=== PATIENT | male | born 1985 | race African-American/Black ===

== ENCOUNTER 2018-11-01 14:29 | Emergency (ER) | payer OTHER ==
[2018-11-01 14:38] VITALS: BP 139/87; PULSE 93; RESP 18; TEMP 97.5
[2018-11-01] MEDS ORDERED: DIPH,PERTUS(ACELL)TETVAC-LF 0.5 ML VIAL IM ONE (14:48)
[2018-11-01] MEDS ORDERED: LIDOCAINE 1% INJ 10MG/ML (20 ML MDV) SQ ONE (14:49)
--- NOTE | 2018-11-01 15:34 | XR ---
Right hand HISTORY: Laceration 2 views of the right hand Bone mineralization, joint spaces and alignment are maintained. No fracture or dislocation. Soft tiss ues remarkable for possible punctate density over the region of the proximal metacarpals seen on the lateral exam. Impression: Question foreign body as described
--- NOTE | 2018-11-01 16:22 | ED ---
General Adult HPI - General Chief complaint: Wound/Laceration Stated complaint: Arm lac Time Seen by Provider: 11/01/18 14:39 Source: patient Mode of arrival: ambulatory Limitations: no limitations - History of Present Illness Initial comments: Patient is a 33-year-old male presenting to emergency Department with a chief complaint of cutting his hand on glass. She reports attempting to knock on a window causing it to break into multiple pieces. Patient denies any foreign bodies at the laceration sites. Patient reports a laceration on the lateral a spect of his right hand, distal forearm and lateral palmar aspect. Patient is unaware of his tetanus status. Patient reports minimal pain at the site of injuries. Patient denies taking any [id number]-hye-[id number] medications to alleviate his symptoms. - Related Data Allergies Allergy/AdvReac Type Severity Reaction Status Date / Time No Known Allergies Allergy Verified 11/01/18 14:37 Review of Systems ROS Statement: Those systems with pertinent positive or pertinent negative responses have been documented in the HPI. ROS Other: All systems not noted in ROS Statement are negative. Past Medical History Past Medical History: No Reported History History of Any Multi-Drug Resistant Organisms: None Reported Past Surgical History: No Surgical Hx Reported Past Psychological History: No Psychological Hx Reported Smoking Status: Current every day smoker Past Alcohol Use History: Occasional Past Drug Use History: Marijuana General Exam Limitations: no limitations General appearance: alert, in no apparent distress, obese Eye exam: Present: normal appearance, PERRL, EOMI Pupils: Present: normal accommodation ENT exam: Present: normal exam, mucous membranes moist, normal external ear exam Neck exam: Present: normal inspection, full ROM Respiratory exam: Present: normal lung sounds bilaterally Cardiovascular Exam: Present: regular rate, normal rhythm, normal heart sounds Extremities exam: Present: full ROM (Full range of motion her right hand and wr ist), normal capillary refill, other (+2 radial and ulnar pulses bilaterally). Absent: normal inspection (Laceration along the palmar aspect of her right hand, lateral aspect of her right hand and distal forearm. All lacerations are approximately 1 cm.) Back exam: Present: normal inspection, full ROM Neurological exam: Present: alert, oriented X3 Psychiatric exam: Present: normal affect, normal mood Skin exam: Present: warm, intact, normal color Course Vital Signs 11/01/18 14:32 Temperature 97.5 F L Pulse Rate 93 Respiratory 18 Rate Blood Pressure 139/87 O2 Sat by Pulse 100 Oximetry Procedures - Laceration Laceration #1 Consent Obtained: verbal consent Indication: laceration Site: hand (Right) Size (cm): 1 Description: linear Depth: simple, single layer Sedation/Analgesia: none Anesthetic Used: lidocaine 1% Anesthesia Technique: local infiltration Amount (mls): 5 Pre-repair: irrigated extensively Type of Sutures: nylon Size of Sutures: 4-0 Number of Sutures: 2 Technique: simple, interrupted Patient Tolerated Procedure: well Laceration #2 Consent Obtained: verbal consent Indication: laceration Site: hand (Right) Size (cm): 1 Description: linear Depth: simple, single layer Sedation/Analgesia: none Anesthetic Used: lidocaine 1% Anesthesia Technique: local infiltration Amount (mls): 5 Pre-repair: irrigated extensively Type of Sutures: nylon Size of Sutures: 4-0 Number of Sutures: 2 Technique: simple, interrupted Patient Tolerated Procedure: well Laceration #3 Consent Obtained: verbal consent Indication: laceration Site: upper extremity (Distal forearm right) Size (cm): 1 Description: linear Depth: simple, single layer Sedation/Analgesia: none Anesthetic Used: lidocaine 1% Anesthesia Technique: local infiltration Amount (mls): 5 Pre-repair: irrigated extensively Type of Sutures: nylon Size of Sutures: 4-0 Number of Sutures: 2 Technique: simple, interrupted Patient Tolerated Procedure: well Medical Decision Making - Medical Decision Making Patient is a 33-year-old male presents emergency Department with with a chief complaint of cut on his hand on glass. X-ray of the right arm is showing a small foreign body on the lateral view however that does not correlate clinically. There is no laceration in that location. Altered laceration sites were repaired using 2 sutures. Patient was given tetanus prophylaxis. Patient advised to return to emergency department in 10 days or sooner if symptoms worsen. Patient advised to follow proper wound care structures. Strict return parameters were thoroughly discussed with patient was understanding and agreeable. Case discussed with physician. Disposition Clinical Impression: Laceration Disposition: HOME SELF-CARE Condition: Stable Instructions (If sedation given, give patient instructions): Care For Your S titches (DC), Laceration (DC) Additional Instructions: Please return to emergency department in 10-14 days for suture removal or sooner if symptoms worsen. Please follow proper wound care INSTRUCTIONS. Is patient prescribed a controlled substance at d/c from ED?: No Referrals: Kelly Enrique MD [Primary Care Provider] - 1-2 days Time of Disposition: 16:22
[2018-11-03] MEDS ORDERED: SODIUM CHLORIDE 0.9% IRRIG 1,000 ML BTL IRRIGATION ONE (19:18)
== END 2018-11-01 16:33 | disposition home or self-care (01) ==
LOC: EC 14:29
DX: S61.411A Laceration without foreign body of right hand, initial encounter (principal); S51.811A Laceration without foreign body of right forearm, initial encounter; F17.200 Nicotine dependence, unspecified, uncomplicated; Z23 Encounter for immunization; W25.XXXA Contact with sharp glass, initial encounter; Y93.89 Activity, other specified
CPT/HCPCS: 73120; 90715; 99283; 12002; 90471; J2001

== ENCOUNTER 2019-09-27 19:15 | Emergency (ER) | payer OTHER ==
[2019-09-27 19:36] VITALS: BP 155/103; PULSE 102; RESP 20; TEMP 98.2
[2019-09-27] MEDS ORDERED: CYCLOBENZAPRINE 10MG STARTER 3 TAB BTL PO STA (19:42)
[2019-09-27] MEDS ORDERED: KETOROLAC 30 MG/ML 1 ML VIAL IM STA (19:42)
--- NOTE | 2019-09-27 19:45 | ED ---
Upper Extremity HPI - General Chief Complaint: Extremity Injury, Upper Stated Complaint: L Shoulder Pain Time Seen by Provider: 09/27/19 19:37 Source: patient, family Mode of arrival: ambulatory Limitations: no limitations - History of Present Illness Initial Comments: 34-year-old male patient presents to the emergency department today for evaluation of left shoulder pain. Patient states 3 weeks ago he was attempting to push a car when he felt a popping sensation in the left shoulder. Patient states he has been having pain to the shoulder since. Seems like his pain is worsening. He denies any pain radiation from his neck or down his arm. Denies numbness or tingling to the extremity. States the pain worsens significantly when he attempts to lift anything with the left arm. Denies any previous injuries to the shoulder. States he did take ibuprofen for the first couple of days but hasn't taken anything since. Denies any difficulty with range of motion. Patient denies any headache, neck pain, back pain, chest pain, shortness of breath, dizziness, weakness, abdominal pain, nausea, vomiting, or difficulties with bowel movements or urination. - Related Data Previous Rx's Medication Instructions Recorded Cyclobenzaprine [Flexeril] 10 mg PO TID #15 tab 09/27/19 Naproxen [EC-Naprosyn] 500 mg PO BID PRN #30 tablet. 09/27/19 Allergies Allergy/AdvReac Type Severity Reaction Status Date / Time No Known Allergies Allergy Verified 11/01/18 14:37 Review of Systems ROS Statement: Those systems with pertinent positive or pertinent negative responses have been documented in the HPI. ROS Other: All systems not noted in ROS Statement are negative. Past Medical History Past Medical History: Hypertension History of Any Multi-Drug Resistant Organisms: None Reported Past Surgical History: No Surgical Hx Reported Past Psychological History: No Psychological Hx Reported Smoking Status: Current every day smoker Past Alcohol Use History: Daily Past Drug Use History: Marijuana General Exam Limitations: no limitations General appearance: alert, in no apparent distress, other (This is a well- developed, well-nourished adult male patient in no acute distress. Vital signs upon presentation are temperature 98.2F, pulse 102, respirations 20, blood pressure 155/103, pulse ox 97% on room air.) Neck exam: Present: normal inspection, full ROM. Absent: tenderness, meningismus, lymphadenopathy Respiratory exam: Present: normal lung sounds bilaterally. Absent: respiratory distress, wheezes, rales, rhonchi, stridor Cardiovascular Exam: Present: regular rate, normal rhythm, normal heart sounds. Absent: systolic murmur, diastolic murmur, rubs, gallop, clicks Extremities exam: Present: normal inspection, full ROM, normal capillary refill, other (Skin to the left arm is warm and dry. Cap refills less than 3 seconds. Radial pulses 2+ and equal bilaterally. Patient exhibits full active range of motion of the left shoulder). Absent: tenderness, pedal edema, joint swelling, calf tenderness Neurological exam: Present: alert, oriented X3, CN II-XII intact Psychiatric exam: Present: normal affect, normal mood Skin exam: Present: warm, dry, intact, normal color. Absent: rash Course Vital Signs 09/27/19 19:32 Temperature 98.2 F Pulse Rate 102 H Respiratory 20 Rate Blood Pressure 155/103 O2 Sat by Pulse 97 Oximetry Medical Decision Making - Medical Decision Making 34-year-old male patient presents to the emergency department today for evaluation of left shoulder pain. Patient states the pain worsens when he attempts to lift something. He has full range of motion. He is having anterior shoulder tenderness. Neurovascular status is intact. Injury occurred approximately 3 weeks ago. We will do a trial of anti-inflammatories and muscle relaxers. He is instructed to follow-up with his primary care physician for recheck in 1-2 days. He is instructed to follow-up with orthopedics if his symptoms are not improved. Return parameters discussed in detail. He verbalizes understanding and agrees with this plan. - Radiology Data Radiology results: report reviewed, image reviewed X-ray of the left shoulder is obtained. Report is reviewed in its entirety. Impression by Dr. Fan shows negative left shoulder exam Disposition Clinical Impression: Left shoulder strain Disposition: HOME SELF-CARE Condition: Good Instructions (If sedation given, give patient instructions): Shoulder Pain (ED) Additional Instructions: Take medications as directed. Follow up with orthpedic specialist if symptoms do not improve with medication. Follow up with your primary care physician for recheck in 1-2 days. Return to the emergency department for any new, worsening, or concerning symptoms. Prescriptions: Naproxen [EC-Naprosyn] 500 mg PO BID PRN #30 tablet.dr BARRERA Reason: Pain Cyclobenzaprine [Flexeril] 10 mg PO TID #15 tab Is patient prescribed a controlled substance at d/c from ED?: No Referrals: Kelly Enrique MD [Primary Care Provider] - 1-2 days Denton Patel MD [Medical Doctor] - 1-2 days Time of Disposition: 20:16
--- NOTE | 2019-09-27 20:05 | XR ---
EXAMINATION TYPE: XR shoulder complete LT DATE OF EXAM: 09/27/2019 COMPARISON: None HISTORY: Shoulder pain TECHNIQUE: 3 views FINDINGS: There is no sign of fracture nor dislocation. Joint spaces are normal. There are no patholo gic calcifications. IMPRESSION: Negative left shoulder exam.
== END 2019-09-27 20:24 | disposition home or self-care (01) ==
LOC: EC 19:15
DX: S46.912A Strain of unspecified muscle, fascia and tendon at shoulder and upper arm level, left arm, initial encounter (principal); F17.200 Nicotine dependence, unspecified, uncomplicated; X50.9XXA Other and unspecified overexertion or strenuous movements or postures, initial encounter
CPT/HCPCS: 99283; 73030; 96372; J1885

== ENCOUNTER → 2020-02-25 | Outpatient (CLI) | payer OTHER ==
--- NOTE | 2020-02-25 16:38 | XR ---
Cervical spine HISTORY: Neck pain 5 views of the cervical spine Cervical vertebral bodies show preserved height, alignment, and bone mineralization. Disc spaces and prevertebral soft tissues are normal. No fracture or subluxation. No significant foraminal encroachme nt. IMPRESSION: No acute abnormality.
== END | disposition home or self-care (01) ==
LOC: RADXRMAIN 13:46
PROVIDERS: ATTEND Internal Medicine
DX: M54.2 Cervicalgia (principal)
CPT/HCPCS: 72050

== ENCOUNTER 2020-10-03 13:52 | Inpatient (IN) | payer MEDICAID, OTHER ==
--- NOTE | 2020-10-03 14:39 | ED ---
General Adult HPI - General Source: patient, RN notes reviewed, old records reviewed Mode of arrival: ambulatory Limitations: no limitations <George Roberson - Last Filed: 10/03/20 14:38> <Angeles Parish - Last Filed: 10/03/20 17:00> - General Chief complaint: Psychiatric Symptoms Stated complaint: Stressed Time Seen by Provider: 10/03/20 14:24 - History of Present Illness Initial comments: 35-year-old male presenting for mental health evaluation. Patient states he's been more depressed than usual. He is requesting to be able to talk with a counselor or psychiatric nurse. He denies suicide attempt. Denies any self- harm. He states he's had some issues similar to this in the past where his had increasing depression. No physical complaints. (George Roberson) - Related Data Home Medications Medication Instructions Recorded Confirmed Ascorbic Acid [Vitamin C] 1,000 mg PO DAILY 10/03/20 10/03/20 Losartan Potassium 50 mg PO DAILY 10/03/20 10/03/20 Phentermine HCl [Adipex-P] 37.5 mg PO DAILY 10/03/20 10/03/20 Allergies Allergy/AdvReac Type Severity Reaction Status Date / Time No Known Allergies Allergy Verified 10/03/20 15:46 Review of Systems ROS Other: All systems not noted in ROS Statement are negative. <George Roberson - Last Filed: 10/03/20 14:38> ROS Other: All systems not noted in ROS Statement are negative. <Angeles Parish - Last Filed: 10/03/20 17:00> ROS Statement: Those systems with pertinent positive or pertinent negative responses have been documented in the HPI. Past Medical History Past Medical History: Hypertension History of Any Multi-Drug Resistant Organisms: None Reported Past Surgical History: No Surgical Hx Reported Past Psychological History: No Psychological Hx Reported Smoking Status: Current every day smoker Past Alcohol Use History: Daily Past Drug Use History: Marijuana <George Roberson - Last Filed: 10/03/20 14:38> General Exam Limitations: no limitations General appearance: alert, in no apparent distress Head exam: Present: atraumatic, normocephalic Eye exam: Present: normal appearance, PERRL ENT exam: Present: normal exam Neck exam: Present: normal inspection. Absent: tenderness, meningismus Respiratory exam: Present: normal lung sounds bilaterally. Absent: respiratory distress, wheezes Cardiovascular Exam: Present: regular rate, normal rhythm GI/Abdominal exam: Present: soft. Absent: distended, tenderness, guarding Extremities exam: Present: normal inspection, normal capillary refill Neurological exam: Present: alert, oriented X3 Psychiatric exam: Present: depressed, flat affect Skin exam: Present: warm, dry, intact. Absent: cyanosis, diaphoretic <George Roberson - Last Filed: 10/03/20 14:38> Course <George Roberson - Last Filed: 10/03/20 14:38> Vital Signs 10/03/20 14:16 Temperature 98.8 F Pulse Rate 89 Respiratory 18 Rate Blood Pressure 154/98 O2 Sat by Pulse 100 Oximetry - Reevaluation(s) Reevaluation #1: 10/03/20 1500 Patient's care is signed out at shift change to Dr. Parish awaiting EPS evaluation. (George Roberson) Medical Decision Making <Angeles Parish - Last Filed: 10/03/20 17:00> - Medical Decision Making Patient care was signed out to me by Dr Roberson, patient with flat affect, depressed awaiting evaluation by EPS EPS evaluated the patient who disclosed to them a psychiatric history, previous IM injections, non-compliance with previous medication regimen and delusional thoughts. Patient signed in to psychiatric facility voluntarily (Angeles Parish) - Lab Data Lab Results 10/03/20 Range/Units 14:49 Urine Opiates Screen Not Detected (NotDetected) Ur Oxycodone Screen Not Detected (NotDetected) Urine Methadone Screen Not Detected (NotDetected) Ur Propoxyphene Screen Not Detected (NotDetected) Ur Barbiturates Screen Not Detected (NotDetected) U Tricyclic Antidepress Not Detected (NotDetected) Ur Phencyclidine Scrn Not Detected (NotDetected) Ur Amphetamines Screen Detected H (NotDetected) U Methamphetamines Scrn Not Detected (NotDetected) U Benzodiazepines Scrn Not Detected (NotDetected) Urine Cocaine Screen Not Detected (NotDetected) U Marijuana (THC) Screen Detected H (NotDetected) Disposition <George Roberson N - Last Filed: 10/03/20 14:38> <Angeles Parish - Last Filed: 10/03/20 17:00> Clinical Impression: Psychosis Disposition: TRANSFER TO PSYCH HOSP/UNIT Referrals: Kelly Enrique MD [Primary Care Provider] - 1-2 days
[2020-10-03 15:52] LABS: Amphetamine Screen,Urine Detected (NotDetected); Barbiturate Screen,Urine Not Detected (NotDetected); Benzodiazepines Screen,Urine Not Detected (NotDetected); Cocaine Screen,Urine Not Detected (NotDetected); Methadone Screen, Urine Not Detected (NotDetected); Opiate Screen,Urine Not Detected (NotDetected); Oxycodone Screen, Urine Not Detected (NotDetected); Phencyclidine Screen,Urine Not Detected (NotDetected); Tricyclic Antidepressant,Urine Not Detected (NotDetected); Urn Cannabinoid Scrn Detected (NotDetected)
[2020-10-03] MEDS ORDERED: MAGNESIUM HYDROXIDE 2,400 MG/10 ML CUP PO PRN (22:20)
[2020-10-03] MEDS ORDERED: LORazepam 1 MG TAB PO PRN (22:20)
[2020-10-03] MEDS ORDERED: ACETAMINOPHEN TAB 325 MG TAB PO PRN (22:20)
[2020-10-03] MEDS ORDERED: MAG HYDROX/AL HYDROX/SIMETH 30 ML CUP PO PRN (22:20)
[2020-10-03] MEDS ORDERED: HALOPERIDOL LACTATE 5 MG/ML 1 ML VIAL IM PRN (22:21)
[2020-10-03] MEDS ORDERED: LORazepam 2 MG/ML INJ IM PRN (22:21)
[2020-10-03 23:09] LABS: Amorphous Sediment,Urine Rare /hpf; Appearance,Urine Cloudy (Clear); Bilirubin,Urine Negative (Negative); Blood,Urine Negative (Negative); Color,Urine Yellow; Glucose,Urine (UA) Negative (Negative); Ketones,Urine Negative (Negative); Leukocyte Esterase,Urine Small (Negative); Mucus,Urine Moderate /hpf; Nitrite,Urine Negative (Negative); PH, Urine 5.5 (5.0-8.0); Protein,Urine 1+ (Negative); Specific Gravity,Urine 1.036 (1.001-1.035); Squamous Epithelial Cell,Urine 1 /hpf (0-4); Urobilinogen,Urine <2.0 mg/dL (<2.0); WBC,Urine 26 /hpf (0-5)
[2020-10-04] MEDS: LOSARTAN 50 MG TAB PO SCH (09:00)
[2020-10-04] MEDS: ASCORBIC ACID 500 MG TAB PO SCH (09:00)
[2020-10-04 10:16] LABS: Basophils # (A) 0.1 k/uL (0-0.2); Basophils % (A) 1 %; Eosinophils # (A) 0.2 k/uL (0-0.7); Eosinophils % (A) 3 %; HCT 44.3 % (39.0-53.0); Lymphocytes # (A) 2.8 k/uL (1.0-4.8); Lymphocytes % (A) 47 %; MCH 27.3 pg (25.0-35.0); MCHC 33.9 g/dL (31.0-37.0); MCV 80.7 fL (80.0-100.0); Mean Platelet Volume 6.7; Monocytes # (A) 0.4 k/uL (0-1.0); Monocytes % (A) 7 %; Neutrophils # (A) 2.5 k/uL (1.3-7.7); Neutrophils % (A) 40 %; Platelet Count 327 k/uL (150-450); RDW 14.2 % (11.5-15.5); WBC 6.1 k/uL (3.8-10.6)
--- NOTE | 2020-10-04 10:23 | P.CONS ---
History of Present Illness - Reason for Consult Consult date: 10/04/20 Medical Management Requesting physician: Henrry Savage - Chief Complaint Psychosis - History of Present Illness This is a 35-year-old male patient who presented to the ER with concerns of more depression than usual. Patient was admitted voluntarily to the psychiatric unit for further management. Patient denies any thoughts of suicide or self-harm. Patient reports he has a history of depression but he became increasingly worse due to stressors at home. patient denies any recent illness. Patient does have a past medical history of essential hypertension. Patient is current every day smoker alcohol and marijuana use. At this time patient denies any chest pain or shortness of breath. Patient denies nausea vomiting or diarrhea. Patient denies any urinary burning or frequency. Review of Systems please refer to HPI otherwise unremarkable Past Medical History Past Medical History: Hypertension History of Any Multi-Drug Resistant Organisms: None Reported Past Surgical History: No Surgical Hx Reported Smoking Status: Current every day smoker Medications and Allergies Home Medications Medication Instructions Recorded Confirmed Type Ascorbic Acid [Vitamin C] 1,000 mg PO DAILY 10/03/20 10/03/20 History Losartan Potassium 50 mg PO DAILY 10/03/20 10/03/20 History Phentermine HCl [Adipex-P] 37.5 mg PO DAILY 10/03/20 10/03/20 History Allergies Allergy/AdvReac Type Severity Reaction Status Date / Time No Known Allergies Allergy Verified 10/03/20 15:46 Physical Exam Vitals: Vital Signs Temp Pulse Pulse Resp BP BP BP 10/04/20 08:59 97.9 F 94 20 160/93 10/04/20 01:15 98.3 F 87 18 148/83 10/03/20 22:19 98.0 F 91 16 134/89 10/03/20 14:16 98.8 F 89 18 154/98 Pulse Ox 10/04/20 08:59 99 10/04/20 01:15 98 10/03/20 22:19 95 10/03/20 14:16 100 Intake and Output 10/03/20 10/04/20 10/04/20 22:59 06:59 14:59 Other: Weight 146.142 kg Head normocephalic Neck supple Lungs clear to auscultation bilaterally no wheezing or crackles Heart regular rate and rhythm S1-S2, no rub or gallop Abdomen is soft nontender nondistended positive bowel sounds no hepatosplenomegaly Extremities no edema Neuro alert and orientated to 3 Results CBC & Chem 7: 10/04/20 09:37 Labs: Abnormal Lab Results - Last 24 Hours (Table) 10/03/20 10/03/20 Range/Units 14:49 14:49 Ur Specific [place] 1.036 H (1.001-1.035) Urine Protein 1+ H (Negative) Ur Leukocyte Esterase Small H (Negative) Urine WBC 26 H (0-5) /hpf Amorphous Sediment Rare H (None) /hpf Urine Mucus Moderate H (None) /hpf Ur Amphetamines Screen Detected H (NotDetected) U Marijuana (THC) Screen Detected H (NotDetected) Assessment and Plan Assessment: 1. Increased depression with psychosis. Patient has been admitted to the mental health unit for further treatment 2. Essential hypertension 3. Current every day smoker 4. Marijuana use Time with Patient: Greater than 30 (Greater than 60% of the total time spent in counseling and coordination of care)
[2020-10-04 10:29] LABS: ALT 32 U/L (4-49); AST 35 U/L (17-59); African American GFR (CKD) >90 (>60 ml/min/1.73 sqM); Albumin 4.8 g/dL (3.5-5.0); Alkaline Phosphatase 64 U/L (38-126); Anion Gap 10 mmol/L; Blood Urea Nitrogen 14 mg/dL (9-20); Calcium 10.3 mg/dL (8.4-10.2); Carbon Dioxide 31 mmol/L (22-30); Chloride 99 mmol/L (98-107); Glucose 93 mg/dL (74-99); Non-African American GFR(CKD) 79 (>60 ml/min/1.73 sqM); Potassium 4.3 mmol/L (3.5-5.1); Sodium 140 mmol/L (137-145); Total Bilirubin 0.6 mg/dL (0.2-1.3); Total Protein 8.1 g/dL (6.3-8.2)
--- NOTE | 2020-10-04 14:54 | P.HP ---
Psychiatric H&P - . H&P Date: 10/04/20 History & Physical: Allergies Allergy/AdvReac Type Severity Reaction Status Date / Time No Known Allergies Allergy Verified 10/03/20 15:46 Vital Signs Temp 97.9 F 10/04/20 08:59 Pulse 94 10/04/20 08:59 Resp 20 10/04/20 08:59 BP 160/93 10/04/20 08:59 Pulse Ox 99 10/04/20 08:59 Intake & Output 10/03/20 10/04/20 10/04/20 18:59 06:59 18:59 Weight 147.871 kg 146.142 kg Laboratory Last Values WBC 6.1 k/uL (3.8-10.6) 10/04/20 09:37 RBC 5.50 m/uL (4.30-5.90) 10/04/20 09:37 Hgb 15.0 gm/dL (13.0-17.5) 10/04/20 09:37 Hct 44.3 % (39.0-53.0) 10/04/20 09:37 MCV 80.7 fL (80.0-100.0) 10/04/20 09:37 MCH 27.3 pg (25.0-35.0) 10/04/20 09:37 MCHC 33.9 g/dL (31.0-37.0) 10/04/20 09:37 RDW 14.2 % (11.5-15.5) 10/04/20 09:37 Plt Count 327 k/uL (150-450) 10/04/20 09:37 MPV 6.7 10/04/20 09:37 Neutrophils % 40 % 10/04/20 09:37 Lymphocytes % 47 % 10/04/20 09:37 Monocytes % 7 % 10/04/20 09:37 Eosinophils % 3 % 10/04/20 09:37 Basophils % 1 % 10/04/20 09:37 Neutrophils # 2.5 k/uL (1.3-7.7) 10/04/20 09:37 Lymphocytes # 2.8 k/uL (1.0-4.8) 10/04/20 09:37 Monocytes # 0.4 k/uL (0-1.0) 10/04/20 09:37 Eosinophils # 0.2 k/uL (0-0.7) 10/04/20 09:37 Basophils # 0.1 k/uL (0-0.2) 10/04/20 09:37 Sodium 140 mmol/L (137-145) 10/04/20 09:37 Potassium 4.3 mmol/L (3.5-5.1) 10/04/20 09:37 Chloride 99 mmol/L (98-107) 10/04/20 09:37 Carbon Dioxide 31 mmol/L (22-30) H 10/04/20 09:37 Anion Gap 10 mmol/L 10/04/20 09:37 BUN 14 mg/dL (9-20) 10/04/20 09:37 Creatinine 1.18 mg/dL (0.66-1.25) 10/04/20 09:37 Est GFR (CKD-EPI)AfAm >90 (>60 ml/min/1.73 sqM) 10/04/20 09:37 Est GFR (CKD-EPI)NonAf 79 (>60 ml/min/1.73 sqM) 10/04/20 09:37 Glucose 93 mg/dL (74-99) 10/04/20 09:37 Calcium 10.3 mg/dL (8.4-10.2) H 10/04/20 09:37 Total Bilirubin 0.6 mg/dL (0.2-1.3) 10/04/20 09:37 AST 35 U/L (17-59) 10/04/20 09:37 ALT 32 U/L (4-49) 10/04/20 09:37 Alkaline Phosphatase 64 U/L (38-126) 10/04/20 09:37 Total Protein 8.1 g/dL (6.3-8.2) 10/04/20 09:37 Albumin 4.8 g/dL (3.5-5.0) 10/04/20 09:37 TSH 1.850 mIU/L (0.465-4.680) 10/04/20 09:37 Urine Color Yellow 10/03/20 14:49 Urine Appearance Cloudy (Clear) 10/03/20 14:49 Urine pH 5.5 (5.0-8.0) 10/03/20 14:49 Ur Specific [place] 1.036 (1.001-1.035) H 10/03/20 14:49 Urine Protein 1+ (Negative) H 10/03/20 14:49 Urine Glucose (UA) Negative (Negative) 10/03/20 14:49 Urine Ketones Negative (Negative) 10/03/20 14:49 Urine Blood Negative (Negative) 10/03/20 14:49 Urine Nitrite Negative (Negative) 10/03/20 14:49 Urine Bilirubin Negative (Negative) 10/03/20 14:49 Urine Urobilinogen <2.0 mg/dL (<2.0) 10/03/20 14:49 Ur Leukocyte Esterase Small (Negative) H 10/03/20 14:49 Urine WBC 26 /hpf (0-5) H 10/03/20 14:49 Ur Squamous Epith Cells 1 /hpf (0-4) 10/03/20 14:49 Amorphous Sediment Rare /hpf (None) H 10/03/20 14:49 Urine Mucus Moderate /hpf (None) H 10/03/20 14:49 Urine Opiates Screen Not Detected (NotDetected) 10/03/20 14:49 Ur Oxycodone Screen Not Detected (NotDetected) 10/03/20 14:49 Urine Methadone Screen Not Detected (NotDetected) 10/03/20 14:49 Ur Propoxyphene Screen Not Detected (NotDetected) 10/03/20 14:49 Ur Barbiturates Screen Not Detected (NotDetected) 10/03/20 14:49 U Tricyclic Antidepress Not Detected (NotDetected) 10/03/20 14:49 Ur Phencyclidine Scrn Not Detected (NotDetected) 10/03/20 14:49 Ur Amphetamines Screen Detected (NotDetected) H 10/03/20 14:49 U Methamphetamines Scrn Not Detected (NotDetected) 10/03/20 14:49 U Benzodiazepines Scrn Not Detected (NotDetected) 10/03/20 14:49 Urine Cocaine Screen Not Detected (NotDetected) 10/03/20 14:49 U Marijuana (THC) Screen Detected (NotDetected) H 10/03/20 14:49 Coronavirus (PCR) Not Detected (Not Detectd) 10/03/20 17:09 10/04/20 14:29 IDENTIFYING DATA: Patient is a 35 yo -[place] Male who currently lives with his in a house and has 2 kids and is unemployed and collects SSI. HPI: Patient presented to the hospital yesterday with complaints of increasing depression. He also apparently had a flat affect and was talking about stressors at home in the ER. Patient's UDS was positive for THC and amphetamines. Patient was seen taking part in group today and agreeable speech regular in the office. He presented with a full affect and was smiling at times during the interview. He was fairly cooperative and appropriate. He claims that "something was going on" and preferred to problems at home. He claims that he has a disrespectful daughter who has not been listening to him. He claims that she listens more to his than him. He claims that he is also having marital issues. He claims that he has tried to talk to them about this over the not listening. He claims that he feels like "being treated like a kid at home". He claims that his mood is "okay" and is denying any depression today. He is denying any anxiety. He claims that he was woken up feeling dizzy and went to the ER initially for evaluation. He states that his sleep has been fair and appetite is fair. Patient denies any suicidal or homicidal ideations intent or plan. At this time patient denies any auditory or visual hallucinations. Patient denies any flight of ideas racing thoughts and increased in goal directed behavior. Patient admits to using cigarettes daily and marijuana daily. PAST PSYCHIATRIC HISTORY: Patient states that he has no psychiatric diagnosis. Patient denies being on any psychiatric medications however did state that he had received "shots" from a doctor in the past to help with his mood however this was several years ago. Patient denies any previous psychiatric hospitalizations. He did state that he is to see a therapist several years ago however stopped going. Patient denies any history of suicide attempts in the past. PMH: Hypertension, obesity ALLERGIES: as per EMR CHEMICAL DEPENDENCY HISTORY: as per HPI FAMILY PSYCHIATRIC/SUBSTANCE USE HISTORY: denies SOCIAL HISTORY: Patient was born and raised in [place]. He states that he did not complete high school. He claims that he has never worked before and collects SSI. He states that he was in probation in the past for being in a car with one of his friends who had an outstanding warrant. MENTAL STATUS EXAM: General Appearance: Patient appears to be stated age is obese, alert, directable, and attempts to cooperate. Patient appears to have fair hygiene and grooming. Behavior: Patient is seated without any agitated behavior. Speech: Patient's speech is fluent and nonpressured. Mood/Affect: Patient reports their mood is "okay", affect is congruent Suicidality/Homicidality: Patient denies having any homicidal ideation intent or plan. Denies any suicidal ideations intent or plan Perceptions: Patient denies any visual hallucinations and denies any auditory hallucinations Though content/process: There is no evidence of any delusional thought content and thought process is linear and goal-directed. Rambles at times. Memory and concentration: AOX3, grossly intact for the purposes of this session. Can spell "WORLD" backwards Judgment and insight: poor STRENGTHS/WEAKNESSES: strength is that patient is resilient. Weakness is that patient has poor judgment and poor social support INTELLECT: average IMPRESSIONS: Adjustment disorder, depressed mood & emotional conduct cannabis use disorder nicotine dependence PLAN: -Patient is admitted under voluntary status to MHU for stabilization of psychiatric symptoms and safety. Patient has signed adult voluntary form and is placed in patient's chart. -Medications : At this time patient does not require any psychiatric medications and will observe patient's behavior and encourage groups and participation in the unit. -Ativan and Haldol PRN for agitation/aggression -Patient was counselled on substance abuse and desired to cut back on use -Patient was informed of the risks, benefits and side effects of the medication and patient verbally consented to taking the medications. Patient signed med consent form and was placed in chart. -Internal Medicine consult to perform medical evaluation and physical. -NRT - nicotine patch -SW on board for discharge planning. Encourage patient to participate in groups to work on coping skills. back shoe worker to follow up with patient's tomorrow to gain further information and likely discharge tomorrow.
[2020-10-04] MEDS: NICOTINE 14MG/24HR PATCH TRANSDERM SCH (14:56)
[2020-10-04] MEDS: CEFDINIR 300 MG CAP PO SCH (20:53)
[2020-10-05 07:21] VITALS: RESP 16; TEMP 97.8
[2020-10-05 08:42] VITALS: BP 138/90; PULSE 99
[2020-10-05] MEDS: CEFDINIR 300 MG CAP PO SCH (08:43)
[2020-10-05] MEDS: NICOTINE 14MG/24HR PATCH TRANSDERM SCH (08:43)
[2020-10-05] MEDS: ASCORBIC ACID 500 MG TAB PO SCH (08:44)
[2020-10-05] MEDS: LOSARTAN 50 MG TAB PO SCH (08:44)
--- NOTE | 2020-10-05 09:29 | P.DS ---
Providers Date of admission: 10/03/20 21:47 Expected date of discharge: 10/05/20 Attending physician: Odell Payan MD Consults: 10/03/20 22:20 Consult Physician Routine Consulting Provider: Kelly Enrique Consult Reason/Comments: H&P and medical Do you want consulting provider notified?: Yes, Notify in am Primary care physician: Kelly Enrique - Discharge Diagnosis(es) (1) Adjustment disorder with emotional disturbance Current Visit: Yes Status: Acute Priority: High (2) Cannabis use disorder, mild, abuse Current Visit: Yes Status: Acute Priority: Medium (3) Nicotine dependence Current Visit: Yes Status: Acute Priority: Low Hospital Course: Admission HPI: Admission note was completed by health science writer "Patient is a 35 yo -[place] Male who currently lives with his in a house and has 2 kids and is unemployed and collects SSI. Patient presented to the hospital yesterday with complaints of increasing depression. He also apparently had a flat affect and was talking about stressors at home in the ER. Patient's UDS was positive for THC and amphetamines. Patient was seen taking part in group today and agreeable speech regular in the office. He presented with a full affect and was smiling at times during the interview. He was fairly cooperative and appropriate. He claims that "something was going on" and preferred to problems at home. He claims that he has a disrespectful daughter who has not been listening to him. He claims that she listens more to his than him. He claims that he is also having marital issues. He claims that he has tried to talk to them about this over the not listening. He claims that he feels like "being treated like a kid at home". He claims that his mood is "okay" and is denying any depression today. He is denying any anxiety. He claims that he was woken up feeling dizzy and went to the ER initially for evaluation. He states that his sleep has been fair and appetite is fair. Patient denies any suicidal or homicidal ideations intent or plan. At this time patient denies any auditory or visual hallucinations. Patient denies any flight of ideas racing thoughts and increased in goal directed behavior. Patient admits to using cigarettes daily and marijuana daily." Hospital course: Upon admission to the unit patient was initially directable and agreeable to commence treatment and signed adult voluntary form. Patient got along well with other patients on the unit and followed unit protocol. Patient was compliant with his meds. Patient was not started on any medications as she did not require any psychotropic or antidepressant medications at this time. Patient spoke of his stressors and engaged in therapy both group and individual. Patient was also seen by medical team for history and physical exam. Throughout the course of the hospitalization patient gradually improved with regards to mood, sleep and became more future oriented with improved insight and judgment. On the day of discharge patient denied any suicidal or homicidal ideations intent or plan denied any auditory or visual hallucinations. Patient endorsed wanting to live for his health and family. The patient denied any access to guns or weapons. Patient denied any paranoia and did not endorse any delusions. Patient does not have a significant history of substance abuse however was counseled on abstaining from all substances including alcohol and marijuana. Patient was also counseled on the medications and need for regular compliance and was encouraged to follow-up with their outpatient appointment for mental health and also for primary care. Prior to discharge a family meeting will be arranged by nursing home social worker to answer any questions and ensure safety upon discharge. Mental status exam: General Appearance: Patient appears to be tall, obese, stated age is alert, pleasant, and cooperative. Patient is in no acute distress and has improved hygiene and grooming Behavior: Patient is calmly seated without any agitated behavior. Speech: Patient's speech is fluent and nonpressured. Mood/Affect: Patient reports their mood is "good", affect is congruent and euthymic. Suicidality/Homicidality: Patient denies having any suicidal or homicidal ideation intent or plan. Perceptions: Patient denies any auditory or visual hallucinations. Though content/process: There is no evidence of any delusional thought content and thought process is linear and goal-directed. more future oriented Memory and concentration: AOX3, grossly intact for the purposes of this session. Can spell "WORLD" backwards correctly. Judgment and insight: improved with guarded prognosis Impression: Adjustment disorder, with emotional disturbance Cannabis use disorder mild Nicotine dependence Plan: -Continue with discharge today as patient has improved and stabilized psychiatrically and is not currently an imminent threat to himself and/or others. -Continue medications: Patient was started on antibiotic by hospitalist for a UTI and will continue for 6 more days. Patient was started on any psychotropics or antidepressant medications. -Patient was counseled on the need for medication compliance and appropriate follow-up at mental health and also primary care for medical issues. Patient verbalized understanding and agreed. -Social work to arrange for and conduct family meeting to ensure safety upon discharge and answer any questions/concerns. Social work also to arrange for patients follow up appointments for psychiatric care along with follow up with primary care provider. -Patient counseled on abstaining from recreational drugs and marijuana and alcohol. Was informed/educated on the adverse effects on their physical and mental health. Patient verbally agreed and understood. -Patient was instructed to return to the hospital or seek immediate medical care if their psychiatric or medical symptoms do worsen or reoccur. Allergies Allergy/AdvReac Type Severity Reaction Status Date / Time No Known Allergies Allergy Verified 10/03/20 15:46 Laboratory Results WBC 6.1 k/uL (3.8-10.6) 10/04/20 09:37 RBC 5.50 m/uL (4.30-5.90) 10/04/20 09:37 Hgb 15.0 gm/dL (13.0-17.5) 10/04/20 09:37 Hct 44.3 % (39.0-53.0) 10/04/20 09:37 MCV 80.7 fL (80.0-100.0) 10/04/20 09:37 MCH 27.3 pg (25.0-35.0) 10/04/20 09:37 MCHC 33.9 g/dL (31.0-37.0) 10/04/20 09:37 RDW 14.2 % (11.5-15.5) 10/04/20 09:37 Plt Count 327 k/uL (150-450) 10/04/20 09:37 MPV 6.7 10/04/20 09:37 Neutrophils % 40 % 10/04/20 09:37 Lymphocytes % 47 % 10/04/20 09:37 Monocytes % 7 % 10/04/20 09:37 Eosinophils % 3 % 10/04/20 09:37 Basophils % 1 % 10/04/20 09:37 Neutrophils # 2.5 k/uL (1.3-7.7) 10/04/20 09:37 Lymphocytes # 2.8 k/uL (1.0-4.8) 10/04/20 09:37 Monocytes # 0.4 k/uL (0-1.0) 10/04/20 09:37 Eosinophils # 0.2 k/uL (0-0.7) 10/04/20 09:37 Basophils # 0.1 k/uL (0-0.2) 10/04/20 09:37 Sodium 140 mmol/L (137-145) 10/04/20 09:37 Potassium 4.3 mmol/L (3.5-5.1) 10/04/20 09:37 Chloride 99 mmol/L (98-107) 10/04/20 09:37 Carbon Dioxide 31 mmol/L (22-30) H 10/04/20 09:37 Anion Gap 10 mmol/L 10/04/20 09:37 BUN 14 mg/dL (9-20) 10/04/20 09:37 Creatinine 1.18 mg/dL (0.66-1.25) 10/04/20 09:37 Est GFR (CKD-EPI)AfAm >90 (>60 ml/min/1.73 sqM) 10/04/20 09:37 Est GFR (CKD-EPI)NonAf 79 (>60 ml/min/1.73 sqM) 10/04/20 09:37 Glucose 93 mg/dL (74-99) 10/04/20 09:37 Calcium 10.3 mg/dL (8.4-10.2) H 10/04/20 09:37 Total Bilirubin 0.6 mg/dL (0.2-1.3) 10/04/20 09:37 AST 35 U/L (17-59) 10/04/20 09:37 ALT 32 U/L (4-49) 10/04/20 09:37 Alkaline Phosphatase 64 U/L (38-126) 10/04/20 09:37 Total Protein 8.1 g/dL (6.3-8.2) 10/04/20 09:37 Albumin 4.8 g/dL (3.5-5.0) 10/04/20 09:37 TSH 1.850 mIU/L (0.465-4.680) 10/04/20 09:37 Urine Color Yellow 10/03/20 14:49 Urine Appearance Cloudy (Clear) 10/03/20 14:49 Urine pH 5.5 (5.0-8.0) 10/03/20 14:49 Ur Specific [place] 1.036 (1.001-1.035) H 10/03/20 14:49 Urine Protein 1+ (Negative) H 10/03/20 14:49 Urine Glucose (UA) Negative (Negative) 10/03/20 14:49 Urine Ketones Negative (Negative) 10/03/20 14:49 Urine Blood Negative (Negative) 10/03/20 14:49 Urine Nitrite Negative (Negative) 10/03/20 14:49 Urine Bilirubin Negative (Negative) 10/03/20 14:49 Urine Urobilinogen <2.0 mg/dL (<2.0) 10/03/20 14:49 Ur Leukocyte Esterase Small (Negative) H 10/03/20 14:49 Urine WBC 26 /hpf (0-5) H 10/03/20 14:49 Ur Squamous Epith Cells 1 /hpf (0-4) 10/03/20 14:49 Amorphous Sediment Rare /hpf (None) H 10/03/20 14:49 Urine Mucus Moderate /hpf (None) H 10/03/20 14:49 Urine Opiates Screen Not Detected (NotDetected) 10/03/20 14:49 Ur Oxycodone Screen Not Detected (NotDetected) 10/03/20 14:49 Urine Methadone Screen Not Detected (NotDetected) 10/03/20 14:49 Ur Propoxyphene Screen Not Detected (NotDetected) 10/03/20 14:49 Ur Barbiturates Screen Not Detected (NotDetected) 10/03/20 14:49 U Tricyclic Antidepress Not Detected (NotDetected) 10/03/20 14:49 Ur Phencyclidine Scrn Not Detected (NotDetected) 10/03/20 14:49 Ur Amphetamines Screen Detected (NotDetected) H 10/03/20 14:49 U Methamphetamines Scrn Not Detected (NotDetected) 10/03/20 14:49 U Benzodiazepines Scrn Not Detected (NotDetected) 10/03/20 14:49 Urine Cocaine Screen Not Detected (NotDetected) 10/03/20 14:49 U Marijuana (THC) Screen Detected (NotDetected) H 10/03/20 14:49 Coronavirus (PCR) Not Detected (Not Detectd) 10/03/20 17:09 Vital Signs Temp 97.8 F 10/05/20 07:20 Pulse 99 10/05/20 08:42 Resp 16 10/05/20 07:20 BP 138/90 10/05/20 08:42 Pulse Ox 97 10/05/20 07:20 Patient Condition at Discharge: Stable Plan - Discharge Summary Discharge Rx Participant: No New Discharge Prescriptions: New Nicotine 14Mg/24Hr Patch [Habitrol] 1 patch TRANSDERM DAILY 14 Days patch Cefdinir [Omnicef] 300 mg PO BID 5 Days cap Continue Ascorbic Acid [Vitamin C] 1,000 mg PO DAILY Losartan Potassium 50 mg PO DAILY 30 Days tab Discontinued Phentermine HCl [Adipex-P] 37.5 mg PO DAILY Discharge Medication List Ascorbic Acid [Vitamin C] 1,000 mg PO DAILY 10/03/20 [History] Cefdinir [Omnicef] 300 mg PO BID 5 Days cap 10/05/20 [Rx] Losartan Potassium 50 mg PO DAILY 30 Days tab 10/05/20 [Rx] Nicotine 14Mg/24Hr Patch [Habitrol] 1 patch TRANSDERM DAILY 14 Days patch 10/05/20 [Rx] Follow up Appointment(s)/Referral(s): Kelly Enrique MD [Primary Care Provider] - 1-2 days Activity/Diet/Wound Care/Special Instructions: Activity and diet as tolerated. Avoid the use of street drugs and alcohol. Take all medications as prescribed. When you are in need of refills on your medications please contact your medical provider and/or outpatient psychiatrist to have this done. Please go to scheduled outpatient appointment for aftercare treatment. If symptoms return or become worse, call the crisis line at and/or go to the nearest emergency room for evaluation. Discharge Disposition: HOME SELF-CARE
== END 2020-10-05 12:23 | disposition home or self-care (01) | DRG 885 ==
LOC: EC 13:52 → 3MHU 21:47
PROVIDERS: ADMIT Psychiatry & Neurology Psychiatry; ATTEND Psychiatry & Neurology Psychiatry
DX: F32.3 Major depressive disorder, single episode, severe with psychotic features (principal); N39.0 Urinary tract infection, site not specified; F12.10 Cannabis abuse, uncomplicated; F17.210 Nicotine dependence, cigarettes, uncomplicated; F43.21 Adjustment disorder with depressed mood; I10 Essential (primary) hypertension; Z91.19 Patient's noncompliance with other medical treatment and regimen; Z20.822 Contact with and (suspected) exposure to COVID-19
CPT/HCPCS: 80053; 80306; 81001; 82075; 84443; 85025; 87635; 99285

== ENCOUNTER 2022-03-19 14:23 | Emergency (ER) | payer OTHER ==
[2022-03-19 14:34] VITALS: BP 169/101; PULSE 77; RESP 20
--- NOTE | 2022-03-19 15:14 | ED ---
URI HPI - General Chief Complaint: Upper Respiratory Infection Stated Complaint: Covid + Time Seen by Provider: 03/19/22 15:13 Source: patient, RN notes reviewed Mode of arrival: ambulatory Limitations: no limitations - History of Present Illness Initial Comments: 36-year-old male presents emergency Department with chief complaint of COVID-19 positive. Patient states started symptoms yesterday states he has fever cough congestion bodyaches. Patient has mild nausea vomiting vomiting no diarrhea states he had 16 work. Patient states he needs a work no. Denies any chest pain denies feeling short of breath denies any other associated complaints. - Related Data Home Medications Medication Instructions Recorded Confirmed Ascorbic Acid [Vitamin C] 1,000 mg PO DAILY 10/03/20 10/03/20 Previous Rx's Medication Instructions Recorded Cefdinir [Omnicef] 300 mg PO BID 5 Days cap 10/05/20 Losartan Potassium 50 mg PO DAILY 30 Days tab 10/05/20 Nicotine 14Mg/24Hr Patch [Habitrol] 1 patch TRANSDERM DAILY 14 Days 10/05/20 patch Allergies Allergy/AdvReac Type Severity Reaction Status Date / Time No Known Allergies Allergy Verified 10/03/20 15:46 Review of Systems ROS Statement: Those systems with pertinent positive or pertinent negative responses have been documented in the HPI. ROS Other: All systems not noted in ROS Statement are negative. Past Medical History Past Medical History: Hyperlipidemia, Hypertension History of Any Multi-Drug Resistant Organisms: None Reported Past Surgical History: No Surgical Hx Reported Past Psychological History: No Psychological Hx Reported Smoking Status: Current every day smoker General Exam Limitations: no limitations General appearance: alert, in no apparent distress Head exam: Present: atraumatic, normocephalic, normal inspection Eye exam: Present: normal appearance, PERRL, EOMI. Absent: scleral icterus, conjunctival injection, periorbital swelling ENT exam: Present: normal exam, normal oropharynx, mucous membranes moist Neck exam: Present: normal inspection, full ROM. Absent: tenderness, meningis mus, lymphadenopathy Respiratory exam: Present: normal lung sounds bilaterally. Absent: respiratory distress, wheezes, rales, rhonchi, stridor Cardiovascular Exam: Present: regular rate, normal rhythm, normal heart sounds. Absent: systolic murmur, diastolic murmur, rubs, gallop, clicks Course Vital Signs 03/19/22 14:29 Temperature 998 F H Pulse Rate 77 Respiratory 20 Rate Blood Pressure 169/101 O2 Sat by Pulse 99 Oximetry Medical Decision Making - Medical Decision Making 36-year-old presented for COVID-19. Patient is going to positive will be discharged in stable condition return parameters were discussed rediscussed on Motrin and return parameters. Disposition Clinical Impression: COVID-19 Disposition: HOME SELF-CARE Condition: Stable Instructions (If sedation given, give patient instructions): COVID-19 (Coronavirus Disease 2019) (ED) Additional Instructions: Please return to the Emergency Department if symptoms worsen or any other concerns. Is patient prescribed a controlled substance at d/c from ED?: No Referrals: Kelly Enrique MD [Primary Care Provider] - 1-2 days Time of Disposition: 15:14
[2022-03-19 15:26] VITALS: TEMP 99.8
== END 2022-03-19 15:32 | disposition home or self-care (01) ==
LOC: EC 14:23
DX: U07.1 COVID-19 (principal); I10 Essential (primary) hypertension; F17.200 Nicotine dependence, unspecified, uncomplicated
CPT/HCPCS: 99283